=== PATIENT | male | born 1975 | race Caucasian/White ===

== ENCOUNTER 2020-08-17 11:57 | Emergency (ER) | payer OTHER ==
[2020-08-17] MEDS ORDERED: BACTRIM DS TAB1 EACH PO (15:10)
== END 2020-08-17 15:41 | disposition home or self-care (01) ==
LOC: FER 11:57
DX: L02.611 Cutaneous abscess of right foot (principal); E11.9 Type 2 diabetes mellitus without complications; Z88.8 Allergy status to other drugs, medicaments and biological substances
CPT/HCPCS: 87070; 87186; 87205